=== PATIENT | male | born 1970 | race Caucasian/White ===

== ENCOUNTER 2020-08-02 21:50 | Inpatient (IN) | payer MEDICARE ==
[2020-08-02] MEDS ORDERED: HYDROcodone/Acetaminophen 5/325 mg Tablet PO PRN (23:20)
[2020-08-02] MEDS ORDERED: Acetaminophen 325 MG TAB PO PRN (23:20)
[2020-08-02] MEDS ORDERED: Ondansetron ODT 4 MG TAB PO PRN (23:20)
[2020-08-02] MEDS ORDERED: Ondansetron PF 4 MG/2 ML Vial IVP PRN (23:20)
[2020-08-03] MEDS: Morphine 2 MG/ML VIAL SLOW IVP PRN ×4 (00:03→12:26)
[2020-08-03 01:25] LABS: Syphilis Antibody Nonreactive (Nonreactive); Syphilis Antibody Index 0.12 S/CO (<1.00 Non-Reactive)
[2020-08-03] MEDS: Piperacillin/Tazobactam 3.375 GM in Sodium Chloride 0.9% 100 ML IVPB SCH ×2 (05:20→15:50)
[2020-08-03 06:22] LABS: Anion Gap 7 mmol/L (10-20); BUN (Urea Nitrogen) 13 mg/dL (8.9-20.6); Calc. Creatinine Clearance 0 mL/min (70-130); Calcium 8.2 mg/dL (7.8-10.44); Carbon Dioxide 29 mmol/L (22-29); Chloride 109 mmol/L (98-107); Glucose 97 mg/dL (70-105); Potassium 3.8 mmol/L (3.5-5.1); Sodium 141 mmol/L (136-145)
[2020-08-03 06:32] LABS: Hemoglobin 11.6 g/dL (14.0-18.0); Hypochromia SLIGHT = 6-15 cells (100X) (0-5/hpf); Lymphocytes 72 % (21-51); MDiff Complete? YES; Mean Corpuscular HGB CONC 34.7 g/dL (32.0-36.0); Mean Corpuscular Hemoglobin 31.7 pg (27.0-31.0); Mean Corpuscular Volume 91.3 fL (78.0-98.0); Mean Platelet Volume 6.5 fL (7.4-10.4); Monocytes 16 % (0-10); Neutrophil 8 % (42-75); Platelet Count 229 thou/uL (130-400); Platelet Morphology Comment Appears Adequate; RBC Distribution Width 13.5 % (11.5-14.5); Reactive Lymphocytes 4 % (0-10); Red Blood Cell (RBC) Count 3.66 mill/uL (4.70-6.10); Reflex for Review?? YES; White Blood Cell (WBC) Count 1.6 thou/uL (4.8-10.8)
[2020-08-03] MEDS ORDERED: Enoxaparin Sodium 40 MG/0.4 ML SYRINGE SC SCH (09:00)
[2020-08-03 14:44] LABS: HBSAB Concentration Less than 8.00 mIU/mL; HBSAg Index 0.18 S/CO (0-0.99); HIV (1/2) Antibody/Antigen Non-Reactive (NonReactive); HIV 1/2 INDEX 0.13 S/CO (<1.00); Hep B Surf AB Non-Reactive (NonReactive); Hep B Surf Ag Non-Reactive S/CO (NonReactive); Hep C IgG Ab Non-Reactive (NonReactive); Hep C Index 0.08 S/CO (0-0.79)
[2020-08-03] MEDS ORDERED: traZODone HCl 50 MG TAB PO PRN (15:11)
[2020-08-03 16:13] VITALS: BP 129/78; TEMP 97.6
[2020-08-04] MEDS ORDERED: Nicotine 21 MG PATCH TD SCH (09:00)
[2020-08-08 13:21] LABS: ANA Symphony (Qualitative) Negative (Negative); ANA Symphony (Quantitative) 0.2 Ratio (< 0.7 Negative); dsDNA IgG Antibody 0.7 IU/mL (<10 Negative)
[2020-08-08 16:14] LABS: Cytoplasmic (C-ANCA) <1:20 titer (Neg:<1:20)
== END 2020-08-03 15:55 | disposition left against medical advice (07) | DRG 809 ==
LOC: SJJU 21:50
PROVIDERS: ADMIT Internal Medicine; ATTEND Internal Medicine
DX: D70.9 Neutropenia, unspecified (principal); C91.Z1 Other lymphoid leukemia, in remission; Z53.29 Procedure and treatment not carried out because of patient's decision for other reasons; F17.210 Nicotine dependence, cigarettes, uncomplicated; I10 Essential (primary) hypertension; F41.9 Anxiety disorder, unspecified; F32.9 Major depressive disorder, single episode, unspecified; N48.5 Ulcer of penis; D64.9 Anemia, unspecified; K12.1 Other forms of stomatitis; Z88.1 Allergy status to other antibiotic agents; Z79.899 Other long term (current) drug therapy; Z79.1 Long term (current) use of non-steroidal anti-inflammatories (NSAID); Z90.13 Acquired absence of bilateral breasts and nipples; Z92.21 Personal history of antineoplastic chemotherapy; Z85.3 Personal history of malignant neoplasm of breast
CPT/HCPCS: 36415; 80048; 82595; 85025; 85060; 86038; 86140; 86160; 86225; 86256; 86706; 86780; 86803; 87340; 87389; J1650; J2270; J2543; J3490

== ENCOUNTER 2023-08-20 09:53 | Emergency (ER) | payer MEDICARE ==
[2023-08-20 11:59] LABS: #Basophils 0.04 10x3/uL (0.0-0.2); %Basophils 0.7 % (0.0-1.0); %Eosinophils 7.4 % (0.0-10.0); %Lymphocytes 25.8 % (21.0-51.0); %Monocytes 6.4 % (0.0-10.0); %Neutrophils 59.2 % (42.0-75.0); Hematocrit 49.6 % (42.0-52.0); Hemoglobin 16.9 g/dL (14.0-18.0); Mean Corpuscular HGB CONC 34.1 g/dL (32.0-36.0); Mean Corpuscular Hemoglobin 31.5 pg (27.0-31.0); Mean Corpuscular Volume 92.4 fL (78.0-98.0); Mean Platelet Volume 8.7 fL (7.4-10.4); Platelet Count 171 10x3/uL (130-400); RBC Distribution Width 13.7 % (11.5-14.5); Red Blood Cell (RBC) Count 5.37 mill/uL (4.70-6.10)
== END 2023-08-20 12:22 | disposition home or self-care (01) ==
LOC: ERS 09:53
DX: S99.921A Unspecified injury of right foot, initial encounter (principal); I10 Essential (primary) hypertension; F17.210 Nicotine dependence, cigarettes, uncomplicated; W10.8XXA Fall (on) (from) other stairs and steps, initial encounter; Y93.89 Activity, other specified
CPT/HCPCS: 36415; 85025

== ENCOUNTER 2024-11-28 11:28 | Day surgery (SDC) | payer MEDICARE ==
[2024-11-25 12:51] VITALS: BMI 34.2
[2024-11-28] MEDS ORDERED: Lidocaine 1% (PF) 30 ML VIAL ONE (12:16)
[2024-11-28] MEDS ORDERED: Ropivacaine 0.5% HCl/PF (150 MG/30 ML VIAL) ONE (12:16)
[2024-11-28] MEDS ORDERED: Ropivacaine 0.2% HCl/PF 20 ML ONE (12:16)
[2024-11-28] MEDS ORDERED: Ropivacaine 0.2% 550 ML 550 ML NERVE BLCK SCH (13:00)
[2024-11-28] MEDS ORDERED: HYDROcodone/Acetaminophen 10/325 mg Tablet PO PRN ×2 (13:00)
[2024-11-28] MEDS ORDERED: Ondansetron PF 4 MG/2 ML Vial IVP PRN (13:00)
[2024-11-28] MEDS ORDERED: PROPOFOL 20 ML ONE (13:10)
[2024-11-28] MEDS ORDERED: Lidocaine 1% PF 5 ML VIAL ONE (13:10)
[2024-11-28] MEDS ORDERED: Ondansetron PF 4 MG/2 ML Vial ONE (13:10)
[2024-11-28] MEDS ORDERED: PHENYLEPHRINE-NS 100 MCG/ML 10 ML SYRINGE ONE (14:27)
[2024-11-28] MEDS ORDERED: HYDROcodone/Acetaminophen 10/325 mg Tablet ONE (15:44)
[2024-11-28] MEDS ORDERED: Ketorolac Tromethamine 30 MG (1 mL) VIAL IVP SCH (18:00)
== END 2024-11-28 16:40 | disposition home or self-care (01) ==
LOC: SDC 11:28
PROVIDERS: ATTEND Orthopaedic Surgery
PROC: 0QSJ04Z Reposition Right Fibula with Internal Fixation Device, Open Approach (ICD-10-PCS; principal; 2024-11-28)
PROC: 0QSG04Z Reposition Right Tibia with Internal Fixation Device, Open Approach (ICD-10-PCS; 2024-11-28)
PROC: 3E0T3BZ Introduction of Anesthetic Agent into Peripheral Nerves and Plexi, Percutaneous Approach (ICD-10-PCS; 2024-11-28)
DX: S82.841A Displaced bimalleolar fracture of right lower leg, initial encounter for closed fracture (principal); I10 Essential (primary) hypertension; Z88.1 Allergy status to other antibiotic agents; Z88.8 Allergy status to other drugs, medicaments and biological substances; Z79.899 Other long term (current) drug therapy; V00.841A Fall from standing electric scooter, initial encounter
CPT/HCPCS: 27814; 64446; 64448; 73610; A4306; J0665; J2250; J2704; J2795 ×3; J3490; C1713; J0166; J1100

== ENCOUNTER 2024-11-29 03:39 | Emergency (ER) | payer MEDICARE ==
[2024-11-29] MEDS ORDERED: HYDROcodone/Acetaminophen 10/325 mg Tablet ONE (06:54)
[2024-11-29 07:05] LABS: #Basophils Less than 0.03 10x3/uL (0.0-0.2); #Eosinophils Less than 0.03 10x3/uL (0.0-0.7); #Monocytes 0.51 10x3/uL (0.11-0.59); #Neutrophils 5.94 10x3/uL (1.40-6.50); %Basophils 0.1 % (0.0-1.0); %Eosinophils 0.1 % (0.0-10.0); %Lymphocytes 11.8 % (21.0-51.0); %Monocytes 6.9 % (0.0-10.0); %Neutrophils 80.6 % (42.0-75.0); Hematocrit 39.3 % (42.0-52.0); Hemoglobin 13.1 g/dL (14.0-18.0); Mean Corpuscular Hemoglobin 29.6 pg (27.0-31.0); Mean Corpuscular Volume 88.7 fL (78.0-98.0); Platelet Count 163 10x3/uL (130-400); Red Blood Cell (RBC) Count 4.43 mill/uL (4.70-6.10); White Blood Cell (WBC) Count 7.38 10x3/uL (4.8-10.8)
[2024-11-29] MEDS ORDERED: Gabapentin 300 MG CAP ONE (07:11)
[2024-11-29 07:20] LABS: ALT (SGPT) 22 U/L (Less than 45); AST (SGOT) 19 U/L (11-34); Albumin 4.0 g/dL (3.1-4.5); Alkaline Phosphatase 100 U/L (40-110); Anion Gap 13 mmol/L (10-20); BUN (Urea Nitrogen) 17 mg/dL (8.4-25.7); Bilirubin, Total 0.5 mg/dL (0.3-1.2); Calc. Creatinine Clearance 0 mL/min (70-130); Calcium 8.7 mg/dL (7.8-10.44); Carbon Dioxide 21 mmol/L (22-29); Chloride 108 mmol/L (98-107); Globulin 2.5 g/dL (2.4-3.5); Glucose 127 mg/dL (70-105); Potassium 4.1 mmol/L (3.5-5.1); Sodium 138 mmol/L (136-145)
== END 2024-11-29 11:12 | disposition home or self-care (01) ==
LOC: ERS 03:39
DX: G89.18 Other acute postprocedural pain (principal); M25.571 Pain in right ankle and joints of right foot; I10 Essential (primary) hypertension; F17.210 Nicotine dependence, cigarettes, uncomplicated
CPT/HCPCS: 36415; 80053; 85025; 86141; 99283